=== PATIENT | female | born 1940 | race African-American/Black ===

== ENCOUNTER 2020-08-11 18:08 | Inpatient (IN) | payer OTHER ==
[~2020-08-11] VITALS: Ht 152.4 cm; Wt 44.9 kg
[2020-08-11] MEDS ORDERED: XARELTO15 MG (18:11)
--- NOTE | 2020-08-11 18:14 | NUR ---
PT ALERTA Y ORIENTADA X1 (NOMBRE). EN COMPANIA DE FAMILIARES Y PARAMEDICOS. REFIEREN JOSE VISTO A LA PT CON UN EPISODIO DE EPILEPSIA, JODIE NO ESTAN SEGUROS: EL FAMILIAR INDICA "LA CON LOS OJOS HACIA ARRIBA".
--- NOTE | 2020-08-11 19:36 | NUR ---
PTE ES EVALUADA POR DR. ALBERT QUIEN ORDENA TRATAMIENTO. RN. Heidi WILKINSON EDUCA A PTE SOBRE ORDENES MEDICAS Y REFIERE COMPRENDER. CANALIZA Y COLECTAN MUESTRAS DE LABORATORIO BAJO MEDIDAS ASEPTICAS Y MANTIENE A PTE CON 0.9% NSS AT 150 ML/HR.
--- NOTE | 2020-08-11 23:10 | NUR ---
SE RECIBE FEMINA ALERTA Y ORIENTADA POR GINETTE ESFERAS, EN FRANCISCO CON BARANDAS ELEVADAS Y SEGURAS. EN COMPANIA DE FAMILIAR. AREA DE VENOPUNCION RENAE DE EDEMA O ENROJECIMIENTO. SE MANTIENE EN OBSERVACION POR CAMBIOS.
--- NOTE | 2020-08-12 06:00 | NUR ---
SE INTENTA PREET MUESTRAS DE ZAHIDA Y CANALIZAR A PACIENTE LUEGO DE HABERSE DANADO LA VANOPUNCION AL IR AL LESIA SIN EXITO. PACIENTE REFIERE QUE NO DESEA QUE SE NABEEL MUESTRAS Y VENOPUNCION AL MOMENTO.
--- NOTE | 2020-08-12 07:24 | NUR ---
SE RECIBE PTE FEMENIA DE 80 YRS ALERTA CONCIETNE Y TRANQUILA EN RFANCISCO CON BARANDAS ELEVADA. PTE NO SE OBSERVA CON IVF'S LA CUAL FAMILIAR DE PTE REFIERE QUE LE DEN TIEMPO PARA PODER PINCHARLA YA QUE NO LA VELASCO PODIDO CANALIZAR . SE ORIENTA A FAILIAR QUE SE LE INTENTARA MAS ADELANTE.
== END 2020-08-17 09:36 | disposition home or self-care (01) | DRG 101 ==
LOC: ER 18:08 → MEDI 08-12 09:13
PROVIDERS: ADMIT Internal Medicine; ATTEND Internal Medicine
PROC: B020ZZZ Computerized Tomography (CT Scan) of Brain (ICD-10-PCS; principal; 2020-08-11)
PROC: BB24ZZZ Computerized Tomography (CT Scan) of Bilateral Lungs (ICD-10-PCS; 2020-08-12)
PROC: 02HV33Z Insertion of Infusion Device into Superior Vena Cava, Percutaneous Approach (ICD-10-PCS; 2020-08-12)
PROC: B020ZZZ Computerized Tomography (CT Scan) of Brain (ICD-10-PCS; 2020-08-12)
PROC: BW3GZZZ Magnetic Resonance Imaging (MRI) of Pelvic Region (ICD-10-PCS; 2020-08-12)
PROC: BW30ZZZ Magnetic Resonance Imaging (MRI) of Abdomen (ICD-10-PCS; 2020-08-12)
PROC: BW21YZZ Computerized Tomography (CT Scan) of Abdomen and Pelvis using Other Contrast (ICD-10-PCS; 2020-08-13)
PROC: 4A033R1 Measurement of Arterial Saturation, Peripheral, Percutaneous Approach (ICD-10-PCS; 2020-08-13)
PROC: 30233N1 Transfusion of Nonautologous Red Blood Cells into Peripheral Vein, Percutaneous Approach (ICD-10-PCS; 2020-08-13)
PROC: 8E0ZXY6 Isolation (ICD-10-PCS; 2020-08-13)
DX: G40.89 Other seizures (principal); C78.5 Secondary malignant neoplasm of large intestine and rectum; N39.0 Urinary tract infection, site not specified; J90 Pleural effusion, not elsewhere classified; C78.6 Secondary malignant neoplasm of retroperitoneum and peritoneum; R18.8 Other ascites; K62.89 Other specified diseases of anus and rectum; E86.0 Dehydration; E88.89 Other specified metabolic disorders; D63.0 Anemia in neoplastic disease; D25.9 Leiomyoma of uterus, unspecified; Z86.718 Personal history of other venous thrombosis and embolism; Z20.828 Contact with and (suspected) exposure to other viral communicable diseases; C50.812 Malignant neoplasm of overlapping sites of left female breast; Z79.01 Long term (current) use of anticoagulants
CPT/HCPCS: 70551; 72198; 74182